=== PATIENT | female | born 1940 | race Caucasian/White ===

== ENCOUNTER 2025-02-25 14:06 | Outpatient (REF) | payer MEDICARE, SELFPAY ==
[2025-02-25 16:18] LABS: Blood Urea Nitrogen 13 mg/dL (9-16); Estimated Glomerular Filt Rate > 60
--- OUTSIDE RECORDS SUMMARY | 2025-02-25 17:53 | XMS_ITS | Continuity of Care Document ---
Author Organization [facility] [address] [place] [address] Phone [phone] Care Team Providers Care Taxation Consultant Name Role Phone Dhaval Cook M.D. Care Team Information Recei jack [phone] Problems Active Problems Provider Date Chronic interstitial [...] Medications SIG Qnty Indications Ordering Provider Date Xfeovueoto16wo Capsules DR Take 1 capsule daily Sky Chavis MD Dynpefubyh151vn Capsules Take 1 capsule 4 times daily Unknown Uuvyfutsv51sy Tablets Take 1 tablet daily Dhaval Cook M.D. Citracal Calcium+D Slow [id number]-es-T nit Tablets ER 24HR 1 by mouth twice a day Gina Kwok M.D. Vitamin D High Ewvtrbk40bmn (1000 Ut) Capsules 1 by mouth every [...] 0.450-4.500 Procedures Date Code Description Status 02/05/2024 39853 Collection Of Venous Blood B y Venipuncture [...]
--- OUTSIDE RECORDS SUMMARY | 2025-02-25 17:53 | XMS_ITS | Clinical Summary ---
Author Organization [facility] Address [address] [place] [address] Care Team Providers Care Gastroenterology Manager Name Role Phone Carlos Matthews MD Primary Care Provider [phone] Medical History Medical History Date Comments GERD [...] Procedure Name Priority Date/Time Associated Diagnosis Comments [facility] DEXA AXIAL SKELETON Routine 12/29/2020 2:44 PM EST Encounter for screening for osteoporosis from Last 3 Months or Most Recently Relevant to Health Maintenance Results * [facility] DEXA AXIAL SKELETON (12/29/2020 2:44 PM EST) Anatomical Region Laterality Modality Mammography 12/29/2020 12:4 8 PM EST Narrative 12/29/2020 2:44 PM EST [facility] Diagnostic Imaging Department [address] [place], [place] [address] Patient: ??JENNIFER DAIGLEYCRajeev Guerra ?/Age/Sex: 1940 - 80 - F Unit#: ??[id number] ? Location/Status: ??SPDIMAM/REG CLI ? Mnemonic/Ordering Site: ??MAMDEXAAX/SPMAM Ordering Physician: ??CARLOS MATTHEWS MD [facility] Dexa Axial Skeleton - 12/29/20 - 1312 [...] probability of hip fracture of 1.9%. Code 12785 Dictating Physician: ??JESSICA KRAUSE MD Electronically Signed by: ??JESSICA KRAUSE MD Dic Date/Time: ??12/29/20 1443 Sign date/Time: ??12/29/20 1444 Procedure Note Jessica Krause MD - 10/30/2022 [facility] Diagnostic Imaging Department [address] [place] [address] Patient: ERICA DAIGLE Charlie /Age/Sex: 1940 - 80 - F Unit#: [id number] [facility] Mnemonic/Ordering Site: [facility] Ordering Physician: CARLOS MATTHEWS MD [facility] Dexa Axial Skeleton - 12/29/201311 HISTORY: The [...] density of the femurs bilaterally is 1.013 gm/bq5mctry is 101% of that of young normals [...] probability of hip fracture of 1.9%. Code 44540 Dictating Physician: JESSICA KRAUSE MD Electronically Signed by: JESSICA KRAUSE MD Dic Date/Time: 12/29/20 1443 Sign date/Time: 12/29/20 1444 Carlos Matthews MD IMG BI PROCEDURES Final Resu lt from Last 3 Months or Most Recently Relevant to Health Maintenance Care Teams Gastroenterology Manager Relationship Specialty Start Date End Date Carlos Matthews MD PCP - General Internal Medicine 09/28/20
== END 2025-02-25 14:07 | disposition home or self-care (01) ==
LOC: HO.LAB 14:06
PROVIDERS: PCP Internal Medicine; Visit Provider Surgery Vascular Surgery
DX: I65.21 Occlusion and stenosis of right carotid artery (principal)
CPT/HCPCS: 36415; 82565; 84520; 99202

== ENCOUNTER 2025-02-25 14:06 | Outpatient (AMB) | payer MEDICARE, BC, SELFPAY ==
--- NOTE | 2025-02-25 14:27 | A.OFFVIS_ITS ---
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 During a recent six-month checkup, Dr. Cook, her primary care physician, indicated no abnormal sounds were detected in her carotid arteries upon auscultation. Ultrasound testing was performed and was concerned about right-sided findings. The patient reports being asymptomatic without any history of TIA, vision changes, weakness, or speech issues. She does not have historical risk factors such as smoking or diabetes. She now presents for vascular evaluation. Of note she is being maintained on aspirin and is questioning the use of a statin. Review of Systems Const All systems reviewed & are unremarkable except as noted in HPI and below Reports no additional complaints ENT Reports Normal hearing present Card Denies chest pain, Denies chest pain at rest, Denies chest pain with activity and Denies pedal edema Resp Denies cough GI Denies abdominal pain Musc Denies abnormal gait, Denies muscle cramps and Denies radiating pain into limb Skin/Breast Denies skin ulcer and Denies wounds Neuro Reports Normal hearing present and Denies abnormal gait Psych Reports no additional complaints Physical Exam Vital Signs: Last Vital Signs BP 118/66 02/25/25 14:37 Const General: cooperative, healthy appearing and comfortable Orientation/consciousness: oriented to person, oriented to place and oriented to time HEENT Head: Yes normal to inspection Neck Neck: Yes normal visual inspection Carotids: no bruits Chest Chest palpation & inspection: normal inspection of the chest Resp Effort & Inspection: normal respiratory effort and able to speak in complete sentences Auscultation: clear to auscultation bilaterally, no crackles, no rales, no rhonchi and no wheezes Cardio Rate: regular rate Rhythm: regular rhythm Heart sounds: S1 normal heart sound present and S2 normal heart sound present Bruits: no carotid bruits Peripheral pulses: Peripheral pulses 2+ throughout GI Inspection: Yes normal to inspection Skin Wounds: no wounds Hair: normal Neuro General: oriented to person, oriented to place and oriented to time Cranial nerves: Yes CN's II-XII intact bilaterally and Yes Normal hearing present Cognition (Neuro): normal cognition Motor exam (neuro): 5/5 motor strength present throughout Extrem Other: venous exam: No significant superficial varicosities or spider telangiectasias, minimal edema General: No clubbing, No cyanosis and No edema Psych Appearance: grossly normal Mental Status: mental status grossly normal Speech and movement: Normal speech and movement present Results Reviewed Results Reviewed: Carotid ultrasound results dated 02/16/2025 from [facility] vascular demonstrates right-sided stenosis 70-99% due to a peak systolic of 233.8 left side 0-49% stenosis. Written report and images were reviewed. Assessment & Plan Assessment & Plan (1) Carotid stenosis, right: Code(s): I65.21 - Occlusion and stenosis of right carotid artery Category: Medical Plan: I discussed with the patient the concern for carotid artery stenosis based on the recent ultrasound findings, showing elevated velocities in the right carotid artery, and the subsequent necessity for a CT scan with contrast for better visualization. The rationale behind prescribing Crestor, along with baby aspirin, was thoroughly explained, emphasizing their role in stabilizing arterial plaque and preventing thromboembolic events. I acknowledged the patien t?s previous adverse experiences with statins but stressed the importance of attempting the medication at a lower dose. The significance of renal function testing before contrast injection during the CT scan was highlighted, ensuring the procedure?s safety. The patient agreed to morning scheduling for the CT scan based on convenience and was encouraged to contact Dr. Cook with any adverse reactions to the statin or other concerns. I reassured her that further management would be based on the CT scan outcomes, and arrangements for follow- up were discussed. The patient had an opportunity to ask questions regarding the treatment plan. All questions were answered. Imaging studies, laboratory studies and physical exam results were discussed and reviewed in detail. No major barriers to understanding were identified. The patient expressed understanding and agreement with the above treatment plan. The patient is aware they should contact our office by phone for worsening of the current condition or the appearance of new symptoms. Thank you for allowing me to participate in the vascular care of this patient. If you have any questions or concerns regarding the treatment for the above condition please do not hesitate to contact me. The office telephone contact is [phone]. This note is constructed using voice recognition software. While every effort has been made to ensure accuracy, microbial specialist errors may have been included. Thank you for allowing me to participate in the care of your patient. Yours sincerely, Lux Hodges MD, FACS, R.P.V.I. Plan Patient was informed and verbally consented to the use of an ambient scribe for clinic note documentation during this visit. Orders: Orders Blood Urea Nitrogen Today I65.21 - Occlusion and stenosis of right carotid artery Creatinine Today I65.21 - Occlusion and stenosis of right carotid artery CT angio neck 1 Week I65.21 - Occlusion and stenosis of right carotid artery Patient Instructions: - Schedule and attend the CT scan of the neck for better imaging of carotid arteries. - Begin low-dose Crestor two to three times a week as prescribed. - Continue taking baby aspirin daily. - Complete any required kidney function tests before CT scan. - Follow up with your vascular surgeon after the CT scan for further instructions. - Report any adverse effects from medications to your healthcare provider immediately. Coding Level of Care Code New Pt Level 4 (58762) Complex EM visit Add On G2211 Diagnoses Carotid stenosis, right I65.21
[2025-02-25 14:37] VITALS: BP 118/66
--- OUTSIDE RECORDS SUMMARY | 2025-02-25 17:10 | XMS_ITS | Continuity of Care Document ---
Author Organization [facility] [address] [place] [address] Phone [phone] Care Team Providers Care Electrical Technology Instructor Name Role Phone Dhaval Cook M.D. Care Team Information Recei jack [phone] Problems Active Problems Provider Date Chronic interstitial cystitis Gina garcia M.D. Onset: 04/18/2023 Diverticulitis Gina Kwok M.D. Ons et: 04/18/2023 Multinodular goiter Gina Kwok M.D. Onset: 04/18/2023 Burning mouth syndrome Raudel Reeves Onset: 04/18/2023 Gastroesophageal reflux disease Gina Edgar M.D. Onset: 04/18/2023 Left bundle branch block Gina Kwok M.D. Onset: 04/18/2023 Facial neuralgia Gina Kwok M.D. On set: 04/18/2023 Social History Type Date Description Comments Sex Unknown Lives With Spouse Work Status Retired ETOH Use Denies alcohol use Tobacco Use Start: Unknown Patient has never smoked Allergies and adverse reactions Description No Known Drug Allergies Medications Active Medications SIG Qnty Indications Ordering Provider Date Npipqibhdz57be Capsules DR Take 1 capsule daily Sky Chavis MD Erermytgnw531mt Capsules Take 1 capsule 4 times daily Unknown Bqtbzqgao96bw Tablets Take 1 tablet daily Dhaval Cook M.D. Citracal Calcium+D Slow Houzyhr547-36-214vn-ln-Y nit Tablets ER 24HR 1 by mouth twice a day Gina Kwok M.D. Vitamin D High Cwzabco14skh (1000 Ut) Capsules 1 by mouth every day Unknown Multi Adult GummiesChewtabs Unknown Vital Signs Date Vital Result Comment 07/07/2024 9:12am BP Systolic 140 mmHg BP Diastolic 68 mmHg Heart Rate 82 /min Height 61 inches 5'1 Weight 132.25 lb BMI (Body Mass Index) 25.0 kg/m2 Results Test Acquired Date Facility Test Result H/L Range N ote TSH Rfx on Abnormal to Free T4 02/05/2024 [facility] TSH Rfx on Abnormal to Free T4 1.050 uIU/mL 0.450-4.500 Procedures Date Code Description Status 02/05/2024 91304 Collection Of Venous Blood B y Venipuncture Completed 12/20/2022 NSHOWOFF No Show Office Visit Complet ed Medical Devices Description No Information Available Encounters Type Date Location Provider Dx Diagnosis Office Visit 07/07/2024 9:00a Main Office Gina Kwok M.D. E04.2 Nontoxic multinodular goiter Assessments Date Code Description Provider 07/07/2024 E04.2 Nontoxic multinodular goiter Gina Kwok M.D. Plan of Treatment Future Appointment(s):* 05/05/2025 3:15 pm - Gina Kwok M.D. at Main Office 04/18/2023 - Gina Kwok M.D.* E04.2 Nontoxic multinodular goiter Functional Status Description No Information Available Mental Status Description No Information Available Referrals Description No Information Available
--- OUTSIDE RECORDS SUMMARY | 2025-02-25 17:10 | XMS_ITS | Clinical Summary ---
Author Organization [facility] Address [address] [place] [address] Care Team Providers Care Shot Coat Tender Name Role Phone Carlos Matthews MD Primary Care Provider [phone] Medical History Medical History Date Comments GERD (gastroesophageal reflux disease) DX:GERD (gastroesophageal reflux disease) Diverticulitis DX:Diverticuliti s Colitis DX:Colitis UTI (urinary tract infection) DX :UTI (urinary tract infection) Cystitis DX:Cystitis Family History Medical History Relation Name Comments Other: unknown cardiac history Father Relation Name Status Comments Father Social History Tobacco Use Types Packs/Day Years Used Date Smoking Tobacco: Never Smokeless Tobacco: Never Alcohol Use Standard Drinks/Week Comments Yes 0 (1 standard drink = 0.6 oz pur e alcohol) Comments Unknown Sex and Gender Information Value Date Recorded Sex Assigned at Not on file Legal Sex Female 4:26 PM EST Gender Identity Not on file Sexual Orientation Not on file Obstetrics History Last Filed Vital Signs Vital Sign Reading Time Taken Comments Blood Pressure 140/80 03/04/2023 10:19 AM EDT Pulse 62 01/09/2023 10:59 AM EST Temperature - - Respiratory Rate - - Oxygen Saturation - - Inhaled Oxygen Concentration - - Weight 61.2 kg (135 lb) 03/04/2023 10:19 AM EDT Height 154.9 cm (5' 1 ) 03/04/2023 10:19 AM EDT Body Mass Index 25.51 03/04/2023 10:19 AM EDT Plan of Treatment Health Maintenance Due Date Last Done Comments DTaP,Tdap,and Td Vaccines (1 - Tdap) 01/11/1959 Zoster Vaccines (2 of 3) 01/11/2014 11/16/2013 RSV Immunization Adult Patients (1 - 1-dose 75+ series) 01/11/2015 Pneumococcal Vaccine: 50+ Years (2 of 2 - PPSV23) 08/23/2016 08/23/2015 Cholesterol Screening (Lipid Panel) 10/20/2022 Depression Screening 10/20/2022 Falls Risk Assessment 10/20/2022 Social Influencers of Health Screening 10/20/2022 COVID-19 Vaccine ( season) 2024 08/31/2021, 01/07/2021, 12/17/2020 Influenza Vaccine (Season Ended) 2025 08/06/2022, 09/28/2021, 08/02/2020, Additional history exists Osteoporosis Screening (Bone Density Screening) 12/29/2030 12/29/2020, 09/30/2018 HIB Vaccines Aged Out No longer eligi ble based on patient's age to complete this topic HPV Vaccines Aged Out No longer eligi ble based on patient's age to complete this topic Hepatitis A Vaccines Aged Out No long er eligible based on patient's age to complete this topic Hepatitis B Vaccines Aged Out No long er eligible based on patient's age to complete this topic IPV Vaccines Aged Out No longer eligi ble based on patient's age to complete this topic MMR Vaccines Aged Out No longer eligi ble based on patient's age to complete this topic Meningococcal ACWY Vaccine Aged Out N o longer eligible based on patient's age to complete this topic Meningococcal B Vaccine Aged Out No l onger eligible based on patient's age to complete this topic RSV Immunization Patients Under 20 months Aged Out No longer eligible based on patient's age to complete this topic Varicella Vaccines Aged Out No longer eligible based on patient's age to complete this topic Procedures Procedure Name Priority Date/Time Associated Diagnosis Comments [facility] DEXA AXIAL SKELETON Routine 12/29/2020 2:44 PM EST Encounter for screening for osteoporosis from Last 3 Months or Most Recently Relevant to Health Maintenance Results * [facility] DEXA AXIAL SKELETON (12/29/2020 2:44 PM EST) Anatomical Region Laterality Modality Mammography 12/29/2020 12:4 8 PM EST Narrative 12/29/2020 2:44 PM EST [facility] Diagnostic Imaging Department [address] [place], [place] [id number] Patient: ??JENNIFER DAIGLEYCRajeev Guerra ?/Age/Sex: 1940 - 80 - F Unit#: ??[id number] ? Location/Status: ??SPDIMAM/REG CLI ? Mnemonic/Ordering Site: ??MAMDEXAAX/SPMAM Ordering Physician: ??CARLOS MATTHEWS MD [facility] Dexa Axial Skeleton - 12/29/20 - 1312 HISTORY: ??The patient is an 80-year-old postmenopausal female with clinical concern for metabolic bone disease. FINDINGS: ??Dual energy x-ray absorptiometry of the lumbar spine and femurs is performed. The mean bone mineral density at L1-2 is 0.977 gm/cm2 which is 84% of that of young normals and 106% of that of age matched controls. This yields a T- score of -1.6 and a Z-score of 0.5 which is diagnostic of osteopenia. The mean bone mineral density of the femurs bilaterally is 1.013 gm/cm2 which is 101% of that of young normals and 138% of that of age matched controls. ??This yields a T-score of 0.0 and a Z-score of 2.2 and there is therefore no evidence of osteoporosis or osteopenia here. ??However, the T-score of the left femoral neck is -1.3 which is diagnostic of osteopenia. IMPRESSION: 1. Osteopenia. ??There has been a decrease of 1.5% in bone mineral density in the lumbar spine since the prior examination of 09/30/2018. ??There has been a decrease of 1.0% in bone mineral density in the right femur and an increase of 0.8% in bone mineral density in the left femur. 2. FRAX analysis yields a 10-year probability of major osteoporotic fracture of 10.7% and a 10-year probability of hip fracture of 1.9%. Code 67773 Dictating Physician: ??JESSICA KRAUSE MD Electronically Signed by: ??JESSICA KRAUSE MD Dic Date/Time: ??12/29/20 1443 Sign date/Time: ??12/29/20 1444 Procedure Note Jessica Krause MD - 10/30/2022 [facility] Diagnostic Imaging Department [address] [place] [address] Patient: ERICA DAIGLE Charlie /Age/Sex: 1940 - 80 - F Unit#: [id number] Location/Status: [facility] Mnemonic/Ordering Site: [facility] Ordering Physician: CARLOS MATTHEWS MD [facility] Dexa Axial Skeleton - 12/29/201311 HISTORY: The patient is an 80-year-old postmenopausal female withclinical concern for metabolic bone disease. FINDINGS: Dual energy x-ray absorptiometry of the lumbar spine and femursis performed. The mean bone mineral density at L1-2 is 0.977 gm/cm2 which is84% of that of young normals and 106% of that of age matched controls. Thisyields a T- score of -1.6 and a Z-score of 0.5 which is diagnostic of osteopenia. The mean bone mineral density of the femurs bilaterally is 1.013 gm/jc5bsiun is 101% of that of young normals and 138% of that of age matched controls.This yields a T-score of 0.0 and a Z-score of 2.2 and there is therefore noevidence of osteoporosis or osteopenia here. However, the T-score of the leftfemoral neck is -1.3 which is diagnostic of osteopenia. IMPRESSION: 1. Osteopenia. There has been a decrease of 1.5% in bone mineral densityin the lumbar spine since the prior examination of 09/30/2018. There hasbeen a decrease of 1.0% in bone mineral density in the right femur and anincrease of 0.8% in bone mineral density in the left femur. 2. FRAX analysis yields a 10-year probability of major osteoporoticfracture of 10.7% and a 10-year probability of hip fracture of 1.9%. Code 09923 Dictating Physician: JESSICA KRAUSE MD Electronically Signed by: JESSICA KRAUSE MD Dic Date/Time: 12/29/20 1443 Sign date/Time: 12/29/20 1444 Carlos Matthews MD IMG BI PROCEDURES Final Resu lt from Last 3 Months or Most Recently Relevant to Health Maintenance Care Teams Shot Coat Tender Relationship Specialty Start Date End Date Carlos Matthews MD PCP - General Internal Medicine 09/28/20
== END 2025-02-25 14:58 | disposition home or self-care (01) ==
LOC: HO.HVS 14:06
PROVIDERS: Visit Provider Surgery Vascular Surgery
DX: I65.21 Occlusion and stenosis of right carotid artery (principal)
CPT/HCPCS: 99204; G2211

== ENCOUNTER 2025-03-24 12:55 | Outpatient (REF) | payer MEDICARE, SELFPAY ==
--- OUTSIDE RECORDS SUMMARY | 2025-03-24 13:14 | XMS_ITS | Clinical Summary ---
Author Organization [facility] Address [address] [place] [address] Care Team Providers Care Nuclear Medicine Specialist Name Role Phone Carlos Matthews MD Primary Care Provider [phone] Medical History Medical History Date Comments GERD [...] Procedure Name Priority Date/Time Associated Diagnosis Comments [facility] DEXA AXIAL SKELETON Routine 12/29/2020 2:44 PM EST Encounter for screening for osteoporosis from Last 3 Months or Most Recently Relevant to Health Maintenance Results * [facility] DEXA AXIAL SKELETON (12/29/2020 2:44 PM EST) Anatomical Region Laterality Modality Mammography 12/29/2020 12:4 8 PM EST Narrative 12/29/2020 2:44 PM EST [facility] Diagnostic Imaging Department [address] [place], [place] [address] Patient: ??JENNIFER DAIGLEYCRajeev Guerra ?/Age/Sex: 1940 - 80 - F Unit#: ??[id number] ? Location/Status: ??SPDIMAM/REG CLI ? Mnemonic/Ordering Site: ??MAMDEXAAX/SPMAM Ordering Physician: ??CARLOS MATTHEWS MD [facility] Dexa Axial Skeleton - 12/29/20 - [...] probability of hip fracture of 1.9%. Code 83707 Dictating Physician: ??JESSICA KRAUSE MD Electronically Signed by: ??JESSICA KRAUSE MD Dic Date/Time: ??12/29/20 1443 Sign date/Time: ??12/29/20 1444 Procedure Note Jesisca Krause MD - 10/30/2022 [facility] Diagnostic Imaging Department [address] [place] [address] Patient: ERICA DAIGLE Charlie /Age/Sex: 1940 - 80 - F Unit#: [id number] Location/Status: [facility] Mnemonic/Ordering Site: [facility] Ordering Physician: CARLOS MATTHEWS MD [facility] Dexa Axial Skeleton - 12/29/201311 HISTORY: [...] density of the femurs bilaterally is 1.013 gm/lm5zovic is 101% of that of young normals [...] probability of hip fracture of 1.9%. Code 41648 Dictating Physician: JESSICA KRAUSE MD Electronically Signed by: JESSICA KRAUSE MD Dic Date/Time: 12/29/20 1443 Sign date/Time: 12/29/20 1444 Carlos Matthews MD IMG BI PROCEDURES Final Resu lt from Last 3 Months or Most Recently Relevant to Health Maintenance Care Teams Nuclear Medicine Specialist Relationship Specialty Start Date End Date Carlos Matthews MD PCP - General Internal Medicine 09/28/20
--- OUTSIDE RECORDS SUMMARY | 2025-03-24 13:14 | XMS_ITS | Continuity of Care Document ---
Author Organization [facility] [address] [place] [address] Phone [phone] Care Team Providers Care Organic Lab Worker Name Role Phone Dhaval Cook M.D. Care Team Information Recei jack [phone] Problems Active Problems Provider Date Chronic interstitial [...] Medications SIG Qnty Indications Ordering Provider Date Rvzjxofuyh63uz Capsules DR Take 1 capsule daily Sky Chavis MD Ninkfguiba994me Capsules Take 1 capsule 4 times daily Unknown Ssyvedfwf65mb Tablets Take 1 tablet daily Dhaval Cook M.D. Citracal Calcium+D Slow Ntweklv296-61-023ff-us-E nit Tablets ER 24HR 1 by mouth twice a day Gina Kwok M.D. Vitamin D High Zifzcsl68pru (1000 Ut) Capsules 1 by mouth every [...] 0.450-4.500 Procedures Date Code Description Status 02/05/2024 89077 Collection Of Venous Blood B y Venipuncture [...]
[2025-03-24] MEDS: iohexoL 350 MG/ML 100 ML INFUS..BTL IV (14:04)
== END 2025-03-24 12:56 | disposition home or self-care (01) ==
LOC: HO.CT 12:55
PROVIDERS: PCP Internal Medicine; Visit Provider Surgery Vascular Surgery
DX: I65.21 Occlusion and stenosis of right carotid artery (principal)
CPT/HCPCS: 70498; Q9967

== ENCOUNTER → 2025-03-24 12:58 | Outpatient (BNV) | payer MEDICARE, SELFPAY | PROVIDERS: PCP Internal Medicine; Visit Provider Radiology Diagnostic Radiology | DX: I65.21 Occlusion and stenosis of right carotid artery (principal) | CPT/HCPCS: 70498 ==

== ENCOUNTER 2025-04-01 09:56 | Outpatient (AMB) | payer MEDICARE, SELFPAY ==
--- NOTE | 2025-04-01 10:03 | MHC.OFFVIS ---
Vital Signs 04/01/25 10:04 Height 5 ft 1 in BP 118/60 Blood Pressure Location Rt brachial Position Sitting Intake Visit Reasons: follow up s/p CTA Neck 03/24/25 Intake Note: follow up CTA Neck 03/24/25 for carotid stenosis. Pt states only complaint is Right LE pins and needles below the knee at rest only. Ointment Mill Tender Required: No Accompanied by: Self / Same As Patient Allergies No Known Allergies Allergy (Verified 04/01/25 10:06) HPI HPI follow up s/p CTA Neck 03/24/25: Details: The patient is an 85-year-old female presenting for a carotid artery follow-up. She was initially seen by her primary care team following an ultrasound that raised concerns, as Dr. Cook heard a bruit during the exam. Subsequently, a CT angiogram was conducted to further assess her carotid arteries. The patient has not experienced any symptoms typically associated with carotid artery disease, such as transient ischemic attacks or strokes. She now presents for follow-up with CT angiogram. Of note she is being maintained on a statin. Review of Systems Const All systems reviewed & are unremarkable except as noted in HPI and below Reports no additional complaints ENT Reports Normal hearing present Card Denies chest pain, Denies chest pain at rest, Denies chest pain with activity and Denies pedal edema Resp Denies cough GI Denies abdominal pain Musc Denies abnormal gait, Denies muscle cramps and Denies radiating pain into limb Skin/Breast Denies skin ulcer and Denies wounds Neuro Reports Normal hearing present and Denies abnormal gait Psych Reports no additional complaints Physical Exam Vital Signs: Last Vital Signs BP 118/60 04/01/25 10:04 Const General: cooperative, healthy appearing and comfortable Orientation/consciousness: oriented to person, oriented to place and oriented to time HEENT Head: Yes normal to inspection Neck Neck: Yes normal visual inspection Carotids: no bruits Chest Chest palpation & inspection: normal inspection of the chest Resp Effort & Inspection: normal respiratory effort and able to speak in complete sentences Auscultation: clear to auscultation bilaterally, no crackles, no rales, no rhonchi and no wheezes Cardio Rate: regular rate Rhythm: regular rhythm Heart sounds: S1 normal heart sound present and S2 normal heart sound present Bruits: no carotid bruits Peripheral pulses: Peripheral pulses 2+ throughout GI Inspection: Yes normal to inspection Skin Wounds: no wounds Hair: normal Neuro General: oriented to person, oriented to place and oriented to time Cranial nerves: Yes CN's II-XII intact bilaterally and Yes Normal hearing present Cognition (Neuro): normal cognition Motor exam (neuro): 5/5 motor strength present throughout Extrem Other: venous exam: No significant superficial varicosities or spider telangiectasias, minimal edema General: No clubbing, No cyanosis and No edema Psych Appearance: grossly normal Mental Status: mental status grossly normal Speech and movement: Normal speech and movement present Results Reviewed Results Reviewed: CT angiogram of the neck dated 03/24/2025 demonstrates no flow-limiting stenosis or occlusion of the carotid arteries. Written report and images were reviewed. Assessment & Plan Assessment & Plan (1) Carotid stenosis, right: Code(s): I65.21 - Occlusion and stenosis of right carotid artery Category: Medical Plan: I reviewed the CT angiogram findings with the patient, confirming that her carotid arteries are clear and no further interventions are needed. We discussed that her asymptomatic status and the clean scan indicate no immediate vascular concerns. I acknowledged the absence of symptoms typically requiring treatment or further diagnostics at this time. She is advised that if any new issues arise, I am available for follow-up. I explained that additional carotid screenings are not warranted currently, and she is cleared to continue with her normal activities, including her gardening. The patient expressed satisfaction with the evaluation, understanding the positive outcome and reassurance provided by the clean scan. Plan Patient was informed and verbally consented to the use of an ambient scribe for clinic note documentation during this visit. Patient Instructions: - You do not need any additional carotid screenings right now. - Feel free to continue with your usual daily activities. - Notify me if you experience any new or unusual symptoms. - Enjoy your gardening and lifestyle as usual. Coding Level of Care Code Est Pt Level 4 (93331) Diagnoses Carotid stenosis, right I65.21
[2025-04-01 10:04] VITALS: BP 118/60
--- OUTSIDE RECORDS SUMMARY | 2025-04-01 10:17 | XMS_ITS | Clinical Summary ---
Author Organization [facility] Address [address] [place] [address] Care Team Providers Care Customs Compliance Manager Name Role Phone Carlos Matthews MD Primary Care Provider [phone] Medical History Medical History Date Comments GERD [...] Procedure Name Priority Date/Time Associated Diagnosis Comments [facility] DEXA AXIAL SKELETON Routine 12/29/2020 2:44 PM EST Encounter for screening for osteoporosis from Last 3 Months or Most Recently Relevant to Health Maintenance Results * [facility] DEXA AXIAL SKELETON (12/29/2020 2:44 PM EST) Anatomical Region Laterality Modality Mammography 12/29/2020 12:4 8 PM EST Narrative 12/29/2020 2:44 PM EST [facility] Diagnostic Imaging Department [address] [place], [place] [id number] Patient: ??JENNIFER DAIGLEYCRajeev Guerra ?/Age/Sex: 1940 - 80 - F Unit#: ??[id number] ? Location/Status: ??SPDIMAM/REG CLI ? Mnemonic/Ordering Site: ??MAMDEXAAX/SPMAM Ordering Physician: ??CARLOS MATTHEWS MD [facility] Dexa Axial Skeleton - 12/29/20 - [...] probability of hip fracture of 1.9%. Code 43744 Dictating Physician: ??JESSICA KRAUSE MD Electronically Signed by: ??JESSICA KRAUSE MD Dic Date/Time: ??12/29/20 1443 Sign date/Time: ??12/29/20 1444 Procedure Note Jessica Krause MD - 10/30/2022 [facility] Diagnostic Imaging Department [address] [place] [address] Patient: ERICA DAIGLE Charlie /Age/Sex: 1940 - 80 - F Unit#: [id number] Location/Status: [facility] Mnemonic/Ordering Site: [facility] Ordering Physician: CARLOS MATTHEWS MD [facility] Dexa Axial Skeleton - 12/29/201311 HISTORY: [...] density of the femurs bilaterally is 1.013 gm/fn3beezv is 101% of that of young normals [...] probability of hip fracture of 1.9%. Code 24269 Dictating Physician: JESSICA KRAUSE MD Electronically Signed by: JESSICA KRAUSE MD Dic Date/Time: 12/29/20 1443 Sign date/Time: 12/29/20 1444 Carlos Matthews MD IMG BI PROCEDURES Final Resu lt from Last 3 Months or Most Recently Relevant to Health Maintenance Care Teams Customs Compliance Manager Relationship Specialty Start Date End Date Carlos Matthews MD PCP - General Internal Medicine 09/28/20
--- OUTSIDE RECORDS SUMMARY | 2025-04-01 10:17 | XMS_ITS | Continuity of Care Document ---
Author Organization [facility] [address] [place] [address] Phone [phone] Care Team Providers Care Account Technician Name Role Phone Dhaval Cook M.D. Care Team Information Recei jack [phone] Problems Active Problems Provider Date Chronic interstitial [...] Medications SIG Qnty Indications Ordering Provider Date [id number] Capsules DR Take 1 capsule daily Sky Chavis MD [id number] Capsules Take 1 capsule 4 times daily Unknown [id number] Tablets Take 1 tablet daily Dhaval Cook M.D. Citracal Calcium+D Slow [id number] nit Tablets ER 24HR 1 by mouth twice a day Gina Kwok M.D. Vitamin D High [id number] (1000 Ut) Capsules 1 by mouth every [...] 0.450-4.500 Procedures Date Code Description Status 02/05/2024 25516 Collection Of Venous Blood B y Venipuncture [...]
== END 2025-04-01 10:36 | disposition home or self-care (01) ==
LOC: HO.HVS 09:57
PROVIDERS: PCP Internal Medicine; Visit Provider Surgery Vascular Surgery
DX: I65.21 Occlusion and stenosis of right carotid artery (principal)
CPT/HCPCS: 99214

== ENCOUNTER → 2025-04-01 09:56 | Outpatient (BNVA) | payer MEDICARE, SELFPAY | PROVIDERS: PCP Internal Medicine; Visit Provider Surgery Vascular Surgery | DX: I65.21 Occlusion and stenosis of right carotid artery (principal) | CPT/HCPCS: 99212 ==